=== PATIENT | female | born 1970 | race American Indian/Alaskan Native ===

== ENCOUNTER 2017-09-04 17:42 | Emergency (ER) | payer SELFPAY ==
[2017-09-04 18:43] LABS: Basophils % (Auto) 0.9 % (0.0-1.8); Eosinophils % (Auto) 3.3 % (0.0-4.3); Hemoglobin 13.4 gm/dl (10.1-14.3); Mean Corpuscular HGB Conc 34 % (30-34); Mean Corpuscular Hemoglobin 32 pg (28-32); Mean Corpuscular Volume 92 fl (79-97); Platelet Count 186 K/mm3 (140-440); Red Blood Count 4.24 M/mm3 (3.65-5.03); Red Cell Distribution Width 14.2 % (13.2-15.2); White Blood Count 6.3 K/mm3 (4.5-11.0)
[2017-09-04 19:25] LABS: Anion Gap 17 mmol/L; BUN/Creatinine Ratio 14; Blood Urea Nitrogen 11 mg/dL (7-17); Calcium 8.7 mg/dL (8.4-10.2); Carbon Dioxide 23 mmol/L (22-30); Chloride 102.8 mmol/L (98-107); Glucose 86 mg/dL (65-100); Potassium 4.2 mmol/L (3.6-5.0); Sodium 139 mmol/L (137-145)
--- NOTE | 2017-09-04 20:20 | Emergency Department Report ---
ED Chest Pain HPI - General Chief Complaint: Chest Pain Stated Complaint: CHEST PAIN, HIGH BLOOD PRESSURE Time Seen by Provider: 09/04/17 19:48 Source: patient Mode of arrival: Ambulatory Limitations: No Limitations - History of Present Illness Initial Comments: This is a 47-year-old Suzanne female presents to the emergency department from home, dropped off by her fianc, with complaint of some midsternal chest pain that has been going on since earlier today while at work. She had some shortness of breath when she first arrived but says that has improved. It is nonradiating chest pain. She also presents with elevated blood pressure despite compliance with her metoprolol. She said that the blood pressure was checked yesterday when she was donating blood and she had a systolic of about 210. It was still elevated today when she went to the pharmacy. She takes a baby aspirin each day but otherwise has not taken anything for her symptoms prior to presentation. Her floor surfacer is Dr. Thomson but she does not have a primary care doctor. She was here in May of last year and was diagnosed with an NSTEMI. Severity scale (0 -10): 4 - Related Data Previous Rx's Medication Instructions Recorded Last Taken Type Metoprolol Xl [Metoprolol 25 mg PO DAILY #30 tablet 12/01/16 Unknown Rx SUCCINATE ER TAB] Allergies Allergy/AdvReac Type Severity Reaction Status Date / Time No Known Allergies Allergy Unverified 11/30/16 13:16 Heart Score - HEART Score History: Slightly suspicious EKG: Non-specific Age: 45-65 Risk factors: 1-2 risk factors Troponin: < normal limit HEART Score: 3 - Critical Actions Critical Actions: 0-3 pts:0.9-1.7%risk of adverse cardiac event.Candidate for discharge ED Review of Systems ROS: Stated complaint: CHEST PAIN, HIGH BLOOD PRESSURE Other details as noted in HPI Comment: All other systems reviewed and negative Constitutional: denies: chills, fever Eyes: denies: eye pain, eye discharge, vision change ENT: denies: ear pain, throat pain Respiratory: shortness of breath. denies: cough, wheezing Cardiovascular: chest pain. denies: palpitations Gastrointestinal: denies: abdominal pain, nausea, diarrhea Genitourinary: denies: urgency, dysuria, discharge Musculoskeletal: denies: back pain, joint swelling, arthralgia Skin: denies: rash, lesions Neurological: denies: headache, weakness, paresthesias Psychiatric: denies: anxiety, depression ED Past Medical Hx - Past Medical History Previous Medical History?: Yes Hx Hypertension: Yes Hx Heart Attack/AMI: Yes Hx Asthma: No - Surgical History Past Surgical History?: Yes Additional Surgical History: , Heart ablation - Social History Smoking Status: Current Every Day Smoker Substance Use Type: Alcohol - Medications Home Medications: Home Medications Medication Instructions Recorded Confirmed Last Taken Type Metoprolol Xl [Metoprolol 25 mg PO DAILY #30 tablet 12/01/16 Unknown Rx SUCCINATE ER TAB] ED Physical Exam - General Limitations: No Limitations - Other Other exam information: GENERAL: The patient is well-developed well-nourished. HENT: Normocephalic. Atraumatic. Patient has moist mucous membranes. EYES: Extraocular motions are intact. Pupils equal reactive to light bilaterally. NECK: Supple. Trachea is midline. CHEST/LUNGS: Clear to auscultation. There is no respiratory distress noted. HEART/CARDIOVASCULAR: Regular. There is no tachycardia. There is no gallop rub or murmur. ABDOMEN: Abdomen is soft, nontender. Patient has normal bowel sounds. There is no abdominal distention. SKIN: Skin is warm and dry. NEURO: The patient is awake, alert, and oriented. The patient is cooperative. The patient has no focal neurologic deficits. The patient has normal speech. MUSCULOSKELETAL: There is no tenderness or deformity. There is no limitation range of motion. There is no evidence of acute injury. ED Course Vital Signs 09/04/17 09/04/17 09/04/17 17:55 19:56 20:00 Temperature 98.3 F Pulse Rate 56 L 54 L 46 L Respiratory 18 16 14 Rate Blood Pressure 196/97 173/88 Blood Pressure [Left] O2 Sat by Pulse 100 100 Oximetry 09/04/17 09/04/17 09/04/17 20:02 20:16 20:45 Temperature 98.2 F Pulse Rate 50 L 57 L 59 L Respiratory 1 L 19 22 Rate Blood Pressure 177/98 176/103 Blood Pressure 173/88 [Left] O2 Sat by Pulse 99 100 100 Oximetry 09/04/17 09/04/17 09/04/17 21:00 21:09 21:15 Temperature Pulse Rate 57 L 54 L 49 L Respiratory 19 16 16 Rate Blood Pressure 172/98 202/98 Blood Pressure 172/98 [Left] O2 Sat by Pulse 97 97 99 Oximetry 09/04/17 09/04/17 09/04/17 21:30 21:45 22:15 Temperature Pulse Rate 52 L 48 L Respiratory 25 H 18 Rate Blood Pressure 164/76 172/98 179/88 Blood Pressure [Left] O2 Sat by Pulse 98 99 100 Oximetry 09/04/17 09/04/17 09/04/17 22:30 22:45 23:01 Temperature Pulse Rate 48 L 49 L 50 L Respiratory 16 15 14 Rate Blood Pressure 173/98 183/103 176/88 Blood Pressure [Left] O2 Sat by Pulse 98 96 98 Oximetry 09/04/17 09/04/17 09/04/17 23:22 23:30 23:35 Temperature Pulse Rate 47 L 48 L Respiratory 15 16 Rate Blood Pressure 176/88 161/83 180/86 Blood Pressure [Left] O2 Sat by Pulse 100 97 Oximetry 09/04/17 09/04/17 09/05/17 23:45 23:49 00:00 Temperature Pulse Rate 62 71 62 Respiratory 16 21 14 Rate Blood Pressure 144/69 144/69 146/76 Blood Pressure [Left] O2 Sat by Pulse 99 99 97 Oximetry 09/05/17 00:15 Temperature Pulse Rate 63 Respiratory 13 Rate Blood Pressure 154/71 Blood Pressure [Left] O2 Sat by Pulse 96 Oximetry JONAH score - Jonah Score Age > 65: (0) No Aspirin use within the Past 7 Days: (0) No 3 or more CAD Risk Factors: (0) No 2 or more Angina events in past 24 hrs: (1) Yes Known CAD with more than 50% Stenosis: (0) No Elevated Cardiac Markers: (0) No ST Deviation Greater than 0.5mm: (0) No JONAH Score: 1 ED Medical Decision Making - Lab Data Result diagrams: 09/04/17 18:26 09/04/17 18:26 - EKG Data -: EKG Interpreted by Me EKG shows normal: sinus rhythm, axis, intervals (slightly prolonged PA interval) , QRS complexes (LDH), ST-T waves Rate: normal - EKG Data When compared to previous EKG there are: previous EKG unavailable Interpretation: other (sinus rhythm, normal axis, slightly prolonged PA interval , LVH) - Radiology Data Radiology results: report reviewed, image reviewed interpreted by me: Chest x-ray does not show any acute process. There are no pleural effusions, obvious pneumonia and there is no pneumothorax. EXAM: CT ANGIO CHEST HISTORY: SOB, CP, elevated dimer TECHNIQUE: CT chest CT angiogram with reconstructions PRIORS: None. FINDINGS: There is no evidence of filling defect within the central pulmonary vasculature to suggest the presence of acute pulmonary embolus. No evidence of mediastinal pathologic lymph node enlargement. Soft tissue density in the anterior mediastinum likely reflects residual tissue. Heart and great vessels are unremarkable. The aorta is normal in caliber. No focal pulmonary infiltrate identified. No pleural fluid collection seen. No acute pulmonary abnormality noted. Visualized portion of the upper abdomen demonstrates no acute change. IMPRESSION: Negative. No CT evidence of acute pulmonary embolus - Medical Decision Making 47-year-old female presents with complaint of some chest pain that began earlier today while at work as well as elevated blood pressure. EKG does not show any signs of ST elevation AL. Labs are unremarkable except for a slightly elevated and equivocal d-dimer. However the patient had negative troponins 3. Because of the d-dimer, a CT angiography of the chest was done that did not show any pulmonary, dissection or any other acute process. vital signs stable throughout her ed course including being afebrile. She was given a small amount of hydralazine and eventually a small amount of morphine. She was reevaluated multiple times for multiple hours and currently is asymptomatic. She had a negative stress test back in November and says that she had another stress test done in January that also was negative. She has good follow-up with Dr. Thomson. She is low on the hard score criteria and a JONAH score of 1 and her pain is considered angina and 0 not. For all these reasons she appears safe for discharge home at this time. She will follow up with cardiology and will return to the ER for any worsening of her symptoms or any acute distress. - Differential Diagnosis AL, PE, pneumonia, costochondritis Critical Care Time: No Critical care attestation.: If time is entered above; I have spent that time in minutes in the direct care of this critically ill patient, excluding procedure time. ED Disposition Clinical Impression: Chest pain Qualifiers: Chest pain type: unspecified Qualified Code(s): R07.9 - Chest pain, unspecified Hypertension Qualifiers: Hypertension type: essential hypertension Qualified Code(s): I10 - Essential ( primary) hypertension Disposition: DC- TO HOME OR SELFCARE Is pt being admited?: No Condition: Stable Instructions: Chest Pain (ED), Hypertension (ED) Additional Instructions: Please follow-up with your floor surfacer in the next few days, without fail. Return to the emergency Department with any worsening of your symptoms or any acute distress. Referrals: CICI THOMSON MD [Staff Physician] - [facility] Time of Disposition: 01:05
[2017-09-04] MEDS ORDERED: NACL ONE (21:23)
--- NOTE | 2017-09-04 23:18 | Cat Scan Report ---
FINAL REPORT EXAM: CT ANGIO CHEST HISTORY: SOB, CP, elevated dimer TECHNIQUE: CT chest CT angiogram with reconstructions PRIORS: None. FINDINGS: There is no evidence of filling defect within the central pulmonary vasculature to suggest the presence of acute pulmonary embolus. No evidence of mediastinal pathologic lymph node enlargement. Soft tissue density in the anterior mediastinum likely reflects residual tissue. Heart and great vessels are unremarkable. The aorta is normal in caliber. No focal pulmonary infiltrate identified. No pleural fluid collection seen. No acute pulmonary abnormality noted. Visualized portion of the upper abdomen demonstrates no acute change. IMPRESSION: Negative. No CT evidence of acute pulmonary embolus
[2017-09-04] MEDS ORDERED: APRESOLINE IV ONE (23:25)
[2017-09-04] MEDS ORDERED: MORPHINE IV ONE (23:25)
[2017-09-05 01:25] VITALS: BP 145/73
--- NOTE | 2017-09-05 07:52 | XRay Report ---
Single view chest: History: Chest pain. Findings: Normal cardiomediastinal silhouette. Trachea is midline. No consolidation, pneumothorax or pleural effusion. Impression: No acute cardiopulmonary findings.
== END 2017-09-05 01:24 | disposition home or self-care (01) ==
LOC: ED 17:42
DX: R07.89 Other chest pain (principal); I10 Essential (primary) hypertension; I25.2 Old myocardial infarction; F17.210 Nicotine dependence, cigarettes, uncomplicated
CPT/HCPCS: 36415; 71010; 71275; 80048; 84484; 85025; 85379; 93005; 93010; 96374; 96375; 99285; J0360; J2270; Q9967

== ENCOUNTER 2017-09-06 15:25 | Inpatient (IN) | payer OTHER ==
--- NOTE | 2017-09-06 16:30 | Cat Scan Report ---
CT scan of head without IV contrast: History: Neurodeficit Findings: Ventricles are normal in size and midline in location. No evidence of acute ischemia, hemorrhage or mass. No extra-axial fluid collections. Normal brainstem and cerebellum. Normal sinuses and master air cells. Impression: No acute intracranial abnormality.
[2017-09-06 16:37] LABS: INR 0.95 (0.87-1.13)
[2017-09-06 16:38] LABS: Partial Thromboplastin Time 33.2 Sec. (24.2-36.6)
[2017-09-06 16:41] LABS: Anion Gap 18 mmol/L; BUN/Creatinine Ratio 12; Blood Urea Nitrogen 12 mg/dL (7-17); Carbon Dioxide 23 mmol/L (22-30); Chloride 106.6 mmol/L (98-107); Glucose 81 mg/dL (65-100); Potassium 4.2 mmol/L (3.6-5.0); Sodium 143 mmol/L (137-145)
[2017-09-06 17:01] LABS: Basophils % (Auto) 0.6 % (0.0-1.8); Eosinophils % (Auto) 2.8 % (0.0-4.3); Hematocrit 40.7 % (30.3-42.9); Hemoglobin 13.7 gm/dl (10.1-14.3); Mean Corpuscular HGB Conc 34 % (30-34); Mean Corpuscular Hemoglobin 31 pg (28-32); Mean Corpuscular Volume 92 fl (79-97); Platelet Count 183 K/mm3 (140-440); Red Blood Count 4.41 M/mm3 (3.65-5.03); Red Cell Distribution Width 14.4 % (13.2-15.2); White Blood Count 6.2 K/mm3 (4.5-11.0)
[2017-09-06] MEDS ORDERED: TYLENOL PO ONE (17:29)
[2017-09-06] MEDS ORDERED: ASPIRIN PO ONE (17:30)
--- NOTE | 2017-09-06 17:43 | Emergency Department Report ---
ED Neuro Deficit HPI - General Chief Complaint: Weakness Stated Complaint: CHEST PAIN/HTN Time Seen by Provider: 09/06/17 16:06 Source: EMS Mode of arrival: Stretcher Limitations: No Limitations - History of Present Illness Initial Comments: Patient states that she was driving and speaking to her son. SHE FELT LIKE HER LEFT FACE WAS DROOPING. SHE ALSO THOUGHT HER speech was slurred. She arrived in the emergency department and the nurse immediately brought her to my attention. Upon my catheter she had no facial droop. Her speech was normal although a bit slow but certainly not dysarthric. Her NIH stroke score was 0. She was noted to be hypertensive. Patient states that she was placed on metoprolol just 2 days ago 25 mg for her hypertension. She has no prior history of CVA. She has no prior history of atrial fibrillation. -: Sudden Location: speech, left face Presenting Symptoms: Present: Weak/Paralyzed One Side, Unable to Speak Clearly. Absent: Sudden, Severe Headache, Blurred/Loss of Vision, Facial Droop/Numbness , Altered Mental Status History of same: No Place: other (while driving) Severity: mild Quality: weak Improves With: none Worsens With: none On Anticoagulants: No Context: sudden onset Associated Symptoms: denies other symptoms Treatments Prior to Arrival: none - Related Data Home Medications: Previous Rx's Medication Instructions Recorded Last Taken Type Metoprolol Xl [Metoprolol 25 mg PO DAILY #30 tablet 12/01/16 Unknown Rx SUCCINATE ER TAB] Allergies/Adverse Reactions: Allergies Allergy/AdvReac Type Severity Reaction Status Date / Time No Known Allergies Allergy Unverified 11/30/16 13:16 ED Review of Systems ROS: Stated complaint: CHEST PAIN/HTN Other details as noted in HPI Constitutional: denies: chills, fever Eyes: denies: eye pain, eye discharge, vision change ENT: denies: ear pain, throat pain Respiratory: denies: cough, shortness of breath, wheezing Cardiovascular: denies: chest pain, palpitations Endocrine: no symptoms reported Gastrointestinal: denies: abdominal pain, nausea, diarrhea Genitourinary: denies: urgency, dysuria, discharge Musculoskeletal: denies: back pain, joint swelling, arthralgia Skin: denies: rash, lesions Neurological: weakness (facial), other (difficulty with speech). denies: headache, paresthesias Psychiatric: denies: anxiety, depression Hematological/Lymphatic: denies: easy bleeding, easy bruising ED Past Medical Hx - Past Medical History Hx Hypertension: Yes Hx Heart Attack/AMI: Yes (?) Hx Asthma: No - Surgical History Additional Surgical History: , Heart ablation - Social History Smoking Status: Current Every Day Smoker Substance Use Type: Alcohol - Medications Home Medications: Home Medications Medication Instructions Recorded Confirmed Last Taken Type Metoprolol Xl [Metoprolol 25 mg PO DAILY #30 tablet 12/01/16 Unknown Rx SUCCINATE ER TAB] ED Neuro Physical Exam - General Limitations: No Limitations General appearance: alert, in no apparent distress, anxious Suspected Stroke: No - Head Head exam: Present: atraumatic, normocephalic - Eye Eye exam: Present: normal appearance, PERRL, EOMI. Absent: scleral icterus - ENT ENT exam: Present: normal exam, mucous membranes moist - Neck Neck exam: Present: normal inspection, other (carotid without bruit). Absent: tenderness, meningismus - Respiratory Respiratory exam: Present: normal lung sounds bilaterally. Absent: respiratory distress - Cardiovascular Cardiovascular Exam: Present: regular rate, normal rhythm. Absent: systolic murmur, diastolic murmur, rubs, gallop - GI/Abdominal GI/Abdominal exam: Present: soft, normal bowel sounds. Absent: distended, tenderness, guarding, rebound, rigid - Extremities Exam Extremities exam: Present: normal inspection, normal capillary refill. Absent: pedal edema, joint swelling, calf tenderness - Back Exam Back exam: Present: normal inspection - Neurological Exam Neurological exam: Present: alert, oriented X3, CN II-XII intact. Absent: motor sensory deficit - NIHSS Assessment Interval: Baseline 1a. Level of Consciousness: alert 1b. LOC Questions: answers correctly 1c. LOC Commands: performs tasks correctly 2. Best Gaze: normal 3. Visual: no visual loss 4. Facial Palsy: normal symmetrical movement 5b. Motor Arm Right: no drift 5a. Motor Arm Left: no drift 6a. Motor Leg Left: no drift 6b. Motor Leg Right: no drift 7. Limb Ataxia: absent 8. Sensory: normal 9. Best Language: no aphasia 10. Dysarthria: normal 11. Extinction/Inattention: no abnormality Total Score: 0 Stroke Severity: No Stroke Symptoms - Psychiatric Psychiatric exam: Present: normal affect, normal mood - Skin Skin exam: Present: warm, dry, intact, normal color. Absent: rash ED Course Vital Signs 09/06/17 09/06/17 09/06/17 15:45 15:47 16:03 Temperature 98.6 F Pulse Rate 62 68 Respiratory 12 18 Rate Blood Pressure 198/86 Blood Pressure 206/85 [Left] O2 Sat by Pulse 98 99 Oximetry 09/06/17 09/06/17 09/06/17 16:04 16:37 16:46 Temperature Pulse Rate 60 Respiratory 22 10 L Rate Blood Pressure 206/85 185/94 155/89 Blood Pressure [Left] O2 Sat by Pulse 100 99 Oximetry 09/06/17 09/06/17 09/06/17 17:00 17:16 17:30 Temperature Pulse Rate 54 L 54 L 56 L Respiratory 13 20 19 Rate Blood Pressure 203/94 203/94 188/87 Blood Pressure [Left] O2 Sat by Pulse 99 99 99 Oximetry - Reevaluation(s) Reevaluation #1: Nurse informed me that the patient complains of some vague chest pain. Her previous hospital EKG was without any evidence of ischemia. Repeat EKG done in the emergency department also showed no significant repolarization change. There are some nonspecific changes in the high lateral leads noted. Patient was described to Dr. Reyes who is admitted the patient to the hospitalist service for further care and evaluation. He stated that he will manage the patient's blood pressure. 09/06/17 18:05 Reevaluation #2: Patient had an NIHSS of 0. She was not a candidate for TPA. I'm uncertain as to whether or not this could be a TIA. She will be admitted as such and for evaluation of chest pain and uncontrolled hypertension. 09/06/17 18:07 - Lab Data Result diagrams: 09/06/17 16:09 09/06/17 16:09 Lab Results 09/06/17 09/06/17 09/06/17 Range/Units 16:09 16:09 16:09 WBC 6.2 (4.5-11.0) K/mm3 RBC 4.41 (3.65-5.03) M/mm3 Hgb 13.7 (10.1-14.3) gm/dl Hct 40.7 (30.3-42.9) % MCV 92 (79-97) fl MCH 31 (28-32) pg MCHC 34 (30-34) % RDW 14.4 (13.2-15.2) % Plt Count 183 (140-440) K/mm3 Lymph % (Auto) 36.5 H (13.4-35.0) % [place] % (Auto) 14.7 H (0.0-7.3) % Eos % (Auto) 2.8 (0.0-4.3) % Baso % (Auto) 0.6 (0.0-1.8) % Lymph # 2.2 (1.2-5.4) K/mm3 [place] # 0.9 H (0.0-0.8) K/mm3 Eos # 0.2 (0.0-0.4) K/mm3 Baso # 0.0 (0.0-0.1) K/mm3 Seg Neutrophils % 45.4 (40.0-70.0) % Seg Neutrophils # 2.8 (1.8-7.7) K/mm3 PT 13.2 (12.2-14.9) Sec. INR 0.95 (0.87-1.13) APTT 33.2 (24.2-36.6) Sec. Thrombin Time (15.1-19.6) Sec. Carbon Dioxide 23 (22-30) mmol/L BUN 12 (7-17) mg/dL Creatinine 1.0 (0.7-1.2) mg/dL Estimated GFR > 60 ml/min BUN/Creatinine Ratio 12 % Glucose 81 (65-100) mg/dL Calcium 9.0 (8.4-10.2) mg/dL Troponin T < 0.010 (0.00-0.029) ng/mL 09/06/17 Range/Units 16:09 WBC (4.5-11.0) K/mm3 RBC (3.65-5.03) M/mm3 Hgb (10.1-14.3) gm/dl Hct (30.3-42.9) % MCV (79-97) fl MCH (28-32) pg MCHC (30-34) % RDW (13.2-15.2) % Plt Count (140-440) K/mm3 Lymph % (Auto) (13.4-35.0) % [place] % (Auto) (0.0-7.3) % Eos % (Auto) (0.0-4.3) % Baso % (Auto) (0.0-1.8) % Lymph # (1.2-5.4) K/mm3 [place] # (0.0-0.8) K/mm3 Eos # (0.0-0.4) K/mm3 Baso # (0.0-0.1) K/mm3 Seg Neutrophils % (40.0-70.0) % Seg Neutrophils # (1.8-7.7) K/mm3 PT (12.2-14.9) Sec. INR (0.87-1.13) APTT (24.2-36.6) Sec. Thrombin Time 16.2 (15.1-19.6) Sec. Carbon Dioxide (22-30) mmol/L BUN (7-17) mg/dL Creatinine (0.7-1.2) mg/dL Estimated GFR ml/min BUN/Creatinine Ratio % Glucose (65-100) mg/dL Calcium (8.4-10.2) mg/dL Troponin T (0.00-0.029) ng/mL NA 143 K 4.2 CL 102.6 AG 18 - EKG Data -: EKG Interpreted by Me EKG shows normal: sinus rhythm, axis, intervals, QRS complexes Rate: normal Interpretation: other (high lateral nonspecific changes) - Radiology Data Radiology results: report reviewed interpreted by me: CT of the head was read as normal by the radiologist Dr. Donaldson. Critical care attestation.: If time is entered above; I have spent that time in minutes in the direct care of this critically ill patient, excluding procedure time. ED Disposition Clinical Impression: Uncontrolled hypertension TIA (transient ischemic attack) Qualifiers: Transient cerebral ischemia type: unspecified Qualified Code(s): G45.9 - Transient cerebral ischemic attack, unspecified Chest pain Qualifiers: Chest pain type: unspecified Qualified Code(s): R07.9 - Chest pain, unspecified Disposition: 09 OP ADMIT IP TO THIS HOSP Is pt being admited?: Yes Does the pt Need Aspirin: Yes Condition: Stable Instructions: Hypertension (ED), Chest Pain (ED) Time of Disposition: 18:09
[2017-09-06] MEDS ORDERED: DULCOLAX PR PRN (18:11)
[2017-09-06] MEDS ORDERED: TYLENOL PO PRN (18:11)
[2017-09-06] MEDS ORDERED: SODIUM CHLORIDE FLUSH SYRINGE 10 ML IV PRN (18:11)
[2017-09-06] MEDS ORDERED: MILK OF MAGNESIA PO PRN (18:11)
[2017-09-06] MEDS ORDERED: AMBIEN PO PRN (18:11)
[2017-09-06] MEDS ORDERED: NITROSTAT SL PRN (18:11)
[2017-09-06] MEDS ORDERED: ZOFRAN IV PRN (18:11)
[2017-09-06] MEDS ORDERED: LOPRESSOR PO ONE (18:19)
[2017-09-06] MEDS ORDERED: APRESOLINE IV PRN (18:20)
--- NOTE | 2017-09-06 18:35 | History and Physical Report ---
History of Present Illness Date of examination: 09/06/17 Date of admission: 09/06/2017 Chief complaint: Chest pain History of present illness: 47-year-old female with a history of hypertension in atrial fibrillation presents this admission with an acute episode of difficulty with speech in left- sided arm numbness and weakness that lasted for less than 10 minutes. Patient was talking to her son on the phone in experienced episode of difficulty in speech and arm numbness. By the time patient examined by ambulates had resolved. States was approximately 10 minutes. At present patient did not have any symptoms no complaints and no vision changes. patient also experienced periods some chest pain in the er. patient describes pain is nonradiating. not associated with shortness of breath no dysuria exertion no orthopnea no pnd. patient gives history of a recent radioablation done by [facility]. patient was started on 25 mg of metoprolol and states has not yet controlled her blood pressure. patient was also in the emergency room several days ago and was also treated with beta rodrick. patient presents this admission with blood pressure systolic greater than 200. at present blood pressure 189/101. she is only taking metoprolol 25 mg. important to note pulse is controlled at 61. Past History Past Medical History: atrial fib, hypertension. denies: cancer, COPD, diabetes , dialysis, DVT, ESRD, GERD, heart failure, hepatitis, HIV/AIDS, hyperthyroidism , hyperlipidemia, hypothyroidism, liver disease, pulmonary embolism, seizures, stroke, sarcoidosis Past Surgical History: Other (radioablation). denies: appendectomy, abd. aortic aneurysm repair, arthroscopy, valve replacement, cholecystectomy, CABG, mastectomy, total hip replacement, tonsillectomy Social history: single, lives with family, smoking, full code Family history: hypertension Medications and Allergies Allergies Allergy/AdvReac Type Severity Reaction Status Date / Time No Known Allergies Allergy Unverified 11/30/16 13:16 Home Medications Medication Instructions Recorded Confirmed Last Taken Type Metoprolol Xl [Metoprolol 25 mg PO DAILY #30 tablet 12/01/16 Unknown Rx SUCCINATE ER TAB] Active Meds: Active Medications Acetaminophen (Tylenol) 650 mg PO Q4H PRN PRN Reason: Pain MILD(1-3)/Fever >100.5/MACHUCA Aspirin (Ecotrin) 325 mg PO QDAY ATUL Bisacodyl (Dulcolax) 10 mg [place] QDAY PRN PRN Reason: Constipation unrelieved by MOM Enoxaparin Sodium (Lovenox) 40 mg SUB-Q QDAY ATUL Famotidine (Pepcid) 20 mg IV BID [facility] Hydralazine HCl (Apresoline) 10 mg IV Q4HR PRN PRN Reason: Hypertension Labetalol HCl (Normodyne) 200 mg PO BID [facility] Stop: 09/10/17 23:59 Losartan Potassium (Cozaar) 50 mg PO QDAY [facility] Magnesium Hydroxide (Milk Of Magnesia) 30 ml PO Q4H PRN PRN Reason: Constipation Nitroglycerin (Nitrostat) 0.4 mg SL Q5M PRN PRN Reason: Chest Pain Ondansetron HCl (Zofran) 4 mg IV Q8H PRN PRN Reason: N/V unrelieved by Reglan Oxycodone/Acetaminophen (Percocet 5/325) 1 tab PO Q6H PRN PRN Reason: Pain, Moderate (4-6) Sodium Chloride (Sodium Chloride Flush Syringe 10 Ml) 10 ml IV PRN PRN PRN Reason: LINE FLUSH Zolpidem Tartrate (Ambien) 10 mg PO QHS PRN PRN Reason: Sleep Review of Systems Constitutional: no weight loss, no weight gain, no chills, no sweats, no anorexia, no fatigue, no weakness, no lethargy, no poor appetite, no chronic pain, no other Ears, nose, mouth and throat: no deferred, no ear discharge, no tinnitis, no decreased hearing, no nose pain, no nasal congestion, no sinus pressure, no bleeding gums, no mouth pain, no hoarseness, no sore throat, no swelling in throat, no post-nasal drip, no vertigo, no pain front of neck, no neck lump Breasts: deferred Cardiovascular: chest pain, high blood pressure, decreased exercise tolerance, no orthopnea, no palpitations, no rapid/irregular heart beat, no edema, no syncope, no lightheadedness, no shortness of breath, no dyspnea on exertion, no paroxysmal nocturnal dyspnea, no claudication, no phlebitis, no leg edema Respiratory: no cough, no cough with sputum, no excessive sputum, no hemoptysis , no shortness of breath, no dyspnea on exertion, no congestion, no wheezing, no pleurisy, no pain, no pain on inspiration, no snoring, no sleep apnea, no respiratory infections, no home oxygen, no other Gastrointestinal: no abdominal pain, no nausea, no vomiting, no diarrhea, no constipation, no change in bowel habits, no hematemesis, no BRBPR, no hematochezia, no early satiety, no heartburn, no excessive gas, no jaundice, no dyspepsia/bloating, no early satiety, no lactose intolerance Genitourinary Female: no pelvic pain, no dysuria, no stress incontinence, no incomplete emptying, no mixed incontinence Musculoskeletal: arm numbness/tingling, no neck stiffness, no neck pain, no shooting arm pain, no low back pain, no shooting leg pain, no leg numbness/ tingling, no hot joints, no morning stiffness, no muscle weakness, no muscle cramps, no myalgias, no atrophy, no limitation of motion, no fractures, no loss of height Integumentary: no redness, no sores, no jaundice, no lesions, no darkening of skin, no acne, no hirsutism Neurological: transient paralysis, numbness, change in speech, no head injury, no paralysis, no weakness, no parathesias, no tingling, no seizures, no syncope , no tremors, no ataxia, no lack of coordination, no vertigo, no headaches, no migraines, no tic, no convulsions, no aphasia, no change in mentation, no confusion, no memory loss, no changes in smell/taste, no balance difficulties, no motor disturbance, no double vision, no hearing difficulties, no burning pain Psychiatric: no anxiety, no sleep disturbances, no insomnia, no hypersomnia, no change in libido, no depression, no hopelessness, no anxiety attacks, no difficulties concentrating Endocrine: no cold intolerance, no polyphagia, no polydipsia, no polyuria, no nocturia, no flushing, no increase in ring/shoe/hat size, no deepening of the voice, no high blood sugars Hematologic/Lymphatic: no easy bleeding, no lymphadenopathy, no lymphedema Allergic/Immunologic: no allergic rhinitis, no wheezing, no persistent infections Exam - Constitutional Vitals: Temp Pulse Resp BP Pulse Ox 98.6 F 56 L 19 188/87 99 09/06/17 16:03 09/06/17 17:30 09/06/17 17:30 09/06/17 17:30 09/06/17 17:30 General appearance: Present: no acute distress, well-nourished - EENT Eyes: Present: PERRL ENT: hearing intact, clear oral mucosa - Neck Neck: Present: supple, normal ROM - Respiratory Respiratory effort: normal Respiratory: bilateral: CTA - Cardiovascular Heart Sounds: Present: S1 & S2. Absent: rub, click - Extremities Extremities: pulses symmetrical, No edema Peripheral Pulses: within normal limits - Abdominal General gastrointestinal: Present: soft, non-tender, non-distended, normal bowel sounds Female genitourinary: Present: normal - Integumentary Integumentary: Present: clear, warm, dry - Musculoskeletal Musculoskeletal: gait normal, strength equal bilaterally - Psychiatric Psychiatric: appropriate mood/affect, intact judgment & insight - Neurologic Neurologic: CNII-XII intact, moves all extremities Results - Labs CBC & Chem 7: 09/06/17 16:09 09/06/17 16:09 Labs: Laboratory Last Values WBC 6.2 K/mm3 (4.5-11.0) 09/06/17 16:09 RBC 4.41 M/mm3 (3.65-5.03) 09/06/17 16:09 Hgb 13.7 gm/dl (10.1-14.3) 09/06/17 16:09 Hct 40.7 % (30.3-42.9) 09/06/17 16:09 MCV 92 fl (79-97) 09/06/17 16:09 MCH 31 pg (28-32) 09/06/17 16:09 MCHC 34 % (30-34) 09/06/17 16:09 RDW 14.4 % (13.2-15.2) 09/06/17 16:09 Plt Count 183 K/mm3 (140-440) 09/06/17 16:09 Lymph % (Auto) 36.5 % (13.4-35.0) H 09/06/17 16:09 [place] % (Auto) 14.7 % (0.0-7.3) H 09/06/17 16:09 Eos % (Auto) 2.8 % (0.0-4.3) 09/06/17 16:09 Baso % (Auto) 0.6 % (0.0-1.8) 09/06/17 16:09 Lymph # 2.2 K/mm3 (1.2-5.4) 09/06/17 16:09 [place] # 0.9 K/mm3 (0.0-0.8) H 09/06/17 16:09 Eos # 0.2 K/mm3 (0.0-0.4) 09/06/17 16:09 Baso # 0.0 K/mm3 (0.0-0.1) 09/06/17 16:09 Seg Neutrophils % 45.4 % (40.0-70.0) 09/06/17 16:09 Seg Neutrophils # 2.8 K/mm3 (1.8-7.7) 09/06/17 16:09 PT 13.2 Sec. (12.2-14.9) 09/06/17 16:09 INR 0.95 (0.87-1.13) 09/06/17 16:09 APTT 33.2 Sec. (24.2-36.6) 09/06/17 16:09 Thrombin Time 16.2 Sec. (15.1-19.6) 09/06/17 16:09 Carbon Dioxide 23 mmol/L (22-30) 09/06/17 16:09 BUN 12 mg/dL (7-17) 09/06/17 16:09 Creatinine 1.0 mg/dL (0.7-1.2) 09/06/17 16:09 Estimated GFR > 60 ml/min 09/06/17 16:09 BUN/Creatinine Ratio 12 % 09/06/17 16:09 Glucose 81 mg/dL (65-100) 09/06/17 16:09 Calcium 9.0 mg/dL (8.4-10.2) 09/06/17 16:09 Troponin T < 0.010 ng/mL (0.00-0.029) 09/06/17 16:09 - Imaging and Cardiology EKG: image reviewed Chest x-ray: image reviewed CT Scan - head: image reviewed Assessment and Plan Assessment and plan: Patient admitted for chest pain transient focal deficit in malignant hypertension. Advance Directives: Yes VTE prophylaxis?: Chemical Plan of care discussed with patient/family: Yes - Patient Problems (1) Encephalopathy Current Visit: Yes Status: Acute Plan to address problem: At present was most likely hypertensive encephalopathy. Symptoms resolved in less than 10 minutes. Patient has no focal neurologic deficit this time. No headache no vision changes no shortness of breath no dyspnea on exertion. Symptoms improve with improvement of blood pressure however it's not optimally controlled. (2) Chest pain Current Visit: Yes Status: Acute Qualifiers: Chest pain type: unspecified Ischemic chest pain type: I Qualified Code(s ): R07.9 - Chest pain, unspecified Plan to address problem: Patient experienced some chest pain. Atypical chest pain. Will admit and rule out for UT. Risk factors include smoking recent atrial fibrillation and hypertension. We'll admit cardiac isoenzymes. Since patient just had radioablation less than a week ago would have cardiology reevaluate patient for any further recommendations. Patient currently admitted was not on any anticoagulant. We'll add aspirin today. Patient unable to tell me why she was not on an anticoagulant but states was a reason. Patient is actually regular at this particular time. We'll also be more aggressive with her blood pressure control. (3) TIA (transient ischemic attack) Current Visit: Yes Status: Acute Qualifiers: Transient cerebral ischemia type: unspecified Qualified Code(s): G45.9 - Transient cerebral ischemic attack, unspecified Plan to address problem: At this time very likely TIA high probability of hypertensive encephalopathy. Patient negative CT scan. Patient no focal deficits at this time. I think should be able to perform MRI and an outpatient if necessary. (4) Uncontrolled hypertension Current Visit: Yes Status: Acute Plan to address problem: I think this is patient's underlying problem malignant hypertension. No clear in stage organ damage at this particular time. Patient's pulse was 60 therefore would not advance beta rodrick at this particular time. Patient also is regular rhythm. Not sure if she had paroxysmal atrial fibrillation. Will treat with aspirin now also give losartan 50 mg daily and labetalol 200 mg twice a day. Patient most likely has already had echo and carotid Doppler. We' ll await cardiology recommendations because she just received radioablation. (5) Paroxysmal SVT (supraventricular tachycardia) Current Visit: No Status: Acute Plan to address problem: Treated was regular will start patient on aspirin for now. Any further anticoagulants per cardiology.
[2017-09-06] MEDS ORDERED: LOPRESSOR ONE (18:41)
[2017-09-06 19:28] LABS: Anion Gap 17 mmol/L; BUN/Creatinine Ratio 15; Blood Urea Nitrogen 15 mg/dL (7-17); Calcium 8.9 mg/dL (8.4-10.2); Carbon Dioxide 25 mmol/L (22-30); Chloride 104.5 mmol/L (98-107); Glucose 84 mg/dL (65-100); Potassium 4.3 mmol/L (3.6-5.0); Sodium 142 mmol/L (137-145)
[2017-09-06 19:30] LABS: Basophils % (Auto) 0.8 % (0.0-1.8); Eosinophils % (Auto) 2.7 % (0.0-4.3); Hematocrit 40.8 % (30.3-42.9); Hemoglobin 13.6 gm/dl (10.1-14.3); Mean Corpuscular HGB Conc 33 % (30-34); Mean Corpuscular Hemoglobin 31 pg (28-32); Mean Corpuscular Volume 93 fl (79-97); Platelet Count 179 K/mm3 (140-440); Red Blood Count 4.38 M/mm3 (3.65-5.03); Red Cell Distribution Width 14.3 % (13.2-15.2); White Blood Count 7.7 K/mm3 (4.5-11.0)
[2017-09-06 19:40] LABS: Creatine Kinase MB 1.8 ng/mL (0.0-4.0)
[2017-09-06] MEDS ORDERED: NORVASC PO ONE (22:45)
[2017-09-06] MEDS: HABITROL TD SCH (22:50)
[2017-09-06] MEDS: PEPCID IV SCH (22:50)
[2017-09-06] MEDS: NORMODYNE PO SCH (22:51)
[2017-09-06] MEDS: AMBIEN PO PRN (22:58)
[2017-09-07 05:03] LABS: Anion Gap 18 mmol/L; BUN/Creatinine Ratio 17; Blood Urea Nitrogen 17 mg/dL (7-17); Calcium 8.5 mg/dL (8.4-10.2); Carbon Dioxide 20 mmol/L (22-30); Chloride 104.4 mmol/L (98-107); Glucose 107 mg/dL (65-100); Potassium 3.8 mmol/L (3.6-5.0); Sodium 139 mmol/L (137-145)
--- NOTE | 2017-09-07 09:43 | Consultation ---
History of Present Illness Consult date: 09/07/17 Requesting physician: OSORIO LANDA Consult reason: chest pain History of present illness: There is a 47-year-old female with history of SVT had ablation last year history of hypertension was last seen in January patient states blood pressures normally well-controlled patient and states was in the ED on Saturday and had elevated blood pressure patient was discharged home from [facility] patient came back one she was driving had dizziness and slurred speech lasting less than 10 minutes patient's blood pressure on EMS was well above 200 patient had one episode of chest pain nonradiating nonexertional aspirin few seconds. Patient has no syncope no lightheadedness deficits no fever no chills Past History Past Medical History: hypertension, other (SVT status post ablation last year). denies: cancer, COPD, diabetes, dialysis, DVT, ESRD, GERD, heart failure, hepatitis, HIV/AIDS, hyperthyroidism, hyperlipidemia, hypothyroidism, liver disease, pulmonary embolism, seizures, stroke, sarcoidosis Past Surgical History: Other (radioablation). denies: appendectomy, abd. aortic aneurysm repair, arthroscopy, valve replacement, cholecystectomy, CABG, mastectomy, total hip replacement, tonsillectomy Social history: single, lives with family, smoking, full code Family history: hypertension Medications and Allergies Allergies Allergy/AdvReac Type Severity Reaction Status Date / Time No Known Allergies Allergy Unverified 11/30/16 13:16 Home Medications Medication Instructions Recorded Confirmed Last Taken Type Metoprolol Xl [Metoprolol 25 mg PO DAILY #30 tablet 12/01/16 09/06/17 Unknown Rx SUCCINATE ER TAB] Cayenne [Cayenne] 1 cap PO QDAY 09/06/17 09/06/17 Unknown History Multivitamin Tab [Multiple Vitamin 1 tab PO QDAY 09/06/17 09/06/17 Unknown History TAB (Theragran)] [place]-3/Dha/Epa/Fish Oil [Fish Oil 1,000 mg PO QDAY 09/06/17 09/06/17 Unknown History 1,000 mg Softgel] Active Meds: Active Medications Acetaminophen (Tylenol) 650 mg PO Q4H PRN PRN Reason: Pain MILD(1-3)/Fever >100.5/MACHUCA Aspirin (Ecotrin) 325 mg PO QDAY ATUL Bisacodyl (Dulcolax) 10 mg [place] QDAY PRN PRN Reason: Constipation unrelieved by MOM Enoxaparin Sodium (Lovenox) 40 mg SUB-Q QDAY [facility] Famotidine (Pepcid) 20 mg IV BID [facility] Last Admin: 09/06/17 22:50 Dose: 20 mg Hydralazine HCl (Apresoline) 10 mg IV Q4HR PRN PRN Reason: Hypertension Influenza Virus Vaccine Quadrival (Fluarix Quad [id number](36 Mos+)) 0.5 ml IM .ONCE ONE Stop: 09/07/17 12:01 Labetalol HCl (Normodyne) 200 mg PO BID [facility] Stop: 09/10/17 23:59 Last Admin: 09/06/17 22:51 Dose: Not Given Losartan Potassium (Cozaar) 50 mg PO QDAY [facility] Magnesium Hydroxide (Milk Of Magnesia) 30 ml PO Q4H PRN PRN Reason: Constipation Nicotine (Habitrol) 21 mg TD QDAY [facility] Last Admin: 09/06/17 22:50 Dose: 21 mg Nitroglycerin (Nitrostat) 0.4 mg SL Q5M PRN PRN Reason: Chest Pain Ondansetron HCl (Zofran) 4 mg IV Q8H PRN PRN Reason: N/V unrelieved by Reglan Oxycodone/Acetaminophen (Percocet 5/325) 1 tab PO Q6H PRN PRN Reason: Pain, Moderate (4-6) Sodium Chloride (Sodium Chloride Flush Syringe 10 Ml) 10 ml IV PRN PRN PRN Reason: LINE FLUSH Zolpidem Tartrate (Ambien) 10 mg PO QHS PRN PRN Reason: Sleep Last Admin: 09/06/17 22:58 Dose: 10 mg Review of Systems All systems: negative (HPI) Physical Examination Vital Signs Pulse Resp Pulse Ox 62 12 98 09/06/17 15:45 09/06/17 15:45 09/06/17 15:45 General appearance: no acute distress, well-nourished HEENT: Positive: PERRL, Mucus Membranes Moist Neck: Positive: neck supple, trachea midline Cardiac: Positive: Reg Rate and Rhythm, S1/S2. Negative: Audible Murmur Lungs: Positive: clear to auscultation, Normal Breath Sounds Neuro: Positive: Grossly Intact Abdomen: Positive: Soft, Active Bowel Sounds. Negative: Tender, Distended Female genitourinary: deferred Skin: Positive: Clear Incision: Cardiac Cath Site Musculoskeletal: No Pain, Normal Range of Motion Extremities: Present: normal. Absent: edema Results 09/06/17 18:58 09/07/17 03:45 Cardiac Enzymes 09/06/17 Range/Units 18:58 CK-MB (CK-2) 1.8 (0.0-4.0) ng/mL Lipids 09/06/17 Range/Units 18:58 Triglycerides 129 (2-149) mg/dL Cholesterol 139 (50-199) mg/dL HDL Cholesterol 40 (40-59) mg/dL Cholesterol/HDL Ratio 3.47 % CBC 09/06/17 Range/Units 18:58 WBC 7.7 (4.5-11.0) K/mm3 RBC 4.38 (3.65-5.03) M/mm3 Hgb 13.6 (10.1-14.3) gm/dl Hct 40.8 (30.3-42.9) % Plt Count 179 (140-440) K/mm3 Lymph # 3.1 (1.2-5.4) K/mm3 [place] # 0.9 H (0.0-0.8) K/mm3 Eos # 0.2 (0.0-0.4) K/mm3 Baso # 0.1 (0.0-0.1) K/mm3 Comprehensive Metabolic Panel 09/06/17 09/07/17 Range/Units 18:58 03:45 Sodium 142 139 (137-145) mmol/L Potassium 4.3 (3.6-5.0) mmol/L Chloride 104.5 (98-107) mmol/L Carbon Dioxide 25 20 L (22-30) mmol/L BUN 15 17 (7-17) mg/dL Creatinine 1.0 1.0 (0.7-1.2) mg/dL Glucose 84 107 H (65-100) mg/dL Calcium 8.9 8.5 (8.4-10.2) mg/dL - Imaging and Cardiology Stress echo: other (11/2016 negative Lexiscan EKG normal myocardial perfusion ischemia noted) Echo: report reviewed (12/2016 normal LV function with no significant regurgitation) EKG interpretations - Telemetry EKG Rhythm: Sinus Rhythm Assessment and Plan Encephalopathy secondary to hypertension Atypical chest pain DC ruled out Hypertension accelerated SVT ablation last year Recommend continuing losartan and changing Toprol to labetalol or better blood pressure control artery blood pressure if stable may discharge
--- NOTE | 2017-09-07 09:57 | XRay Report ---
AP CHEST: HISTORY: Hypertension AP view of the chest demonstrates a normal mediastinal and cardiac contour with clear lungs and normal bony and soft tissue structures. IMPRESSION: Unremarkable AP chest. No change since 09/04/17.
[2017-09-07] MEDS ORDERED: HABITROL TD SCH (10:00)
[2017-09-07] MEDS ORDERED: COZAAR PO SCH (10:00)
[2017-09-07] MEDS: HABITROL TD SCH (10:08)
[2017-09-07] MEDS: LOVENOX SUB-Q SCH (10:09)
[2017-09-07] MEDS: PEPCID IV SCH ×2 (10:10→21:26)
[2017-09-07] MEDS: ECOTRIN PO SCH (10:12)
[2017-09-07] MEDS: NORMODYNE PO SCH ×2 (10:12→18:00)
[2017-09-07] MEDS ORDERED: Fluarix Quad 2017-2018(36 MOS+) IM ONE (12:00)
[2017-09-07] MEDS: PERCOCET 5/325 PO PRN (12:13)
--- NOTE | 2017-09-07 16:35 | Progress Note ---
Assessment and Plan /Encephalopathy likely hypertensive encephalopathy. Symptoms improve with improvement of blood pressure however it's not optimally controlled. /Chest pain Patient c/o some chest pain on admission. cardiology consulted and no further intervention recommended /TIA (transient ischemic attack) At this time very likely TIA high probability of hypertensive encephalopathy. Patient negative CT scan. Patient no focal deficits at this time. Patient wants to get MRI inpt, will order /Malignant hypertension Increased losartan to 100 mg daily and labetalol 200 mg twice a day. cont to monitor /h/o Paroxysmal SVT (supraventricular tachycardia) Started patient on aspirin for now. cont BB Subjective Date of service: 09/07/17 Interval history: Patient seen and examined. Medical records and medication list reviewed. No acute event overnight noted by the RN. Patient denies any difficulty breathing. Patient is tolerating diet. Discussed plan of care at bedside with patient. Objective - Exam Narrative Exam: GENERAL: well-developed and well-nourished AAF lying on bed appeared to be in no discomfort. HEENT: Normocephalic. Atraumatic. No conjunctival congestion or icterus. Patient has moist mucous membranes. NECK: Supple. Trachea midline. CHEST/LUNGS: Clear to auscultated bilaterally, breathing nonlabored. No wheezes crackles or rhonchi. HEART/CARDIOVASCULAR: Regular in rate and rhythm. S1 and S2 positive. ABDOMEN: Abdomen is soft, nontender. Patient has normal bowel sounds. SKIN: There is no rash. Warm and dry. NEURO: No focal motor deficit. Follows command. MUSCULOSKELETAL: No joint effusion or tenderness. EXTRIMITY: No edema, no cyanosis or clubbing. PSYCH: Cooperative. - Constitutional Vitals: Vital Signs - 12hr 09/07/17 09/07/17 09/07/17 07:35 08:01 09:16 Temperature 98.3 F Pulse Rate 51 L 135 H Pulse Rate [ Apical] Respiratory 17 Rate Blood Pressure 133/95 163/78 133/95 O2 Sat by Pulse 98 Oximetry 09/07/17 09/07/17 10:00 11:47 Temperature 98.3 F Pulse Rate 58 L 63 Pulse Rate [ 58 L Apical] Respiratory 18 Rate Blood Pressure 150/81 O2 Sat by Pulse 99 100 Oximetry - Labs CBC & Chem 7: 09/06/17 18:58 09/07/17 03:45 Labs: Abnormal lab results 09/06/17 09/07/17 Range/Units 18:58 03:45 Lymph % (Auto) 40.2 H (13.4-35.0) % [place] % (Auto) 11.8 H (0.0-7.3) % [place] # 0.9 H (0.0-0.8) K/mm3 Carbon Dioxide 20 L (22-30) mmol/L Glucose 107 H (65-100) mg/dL
[2017-09-07] MEDS: COZAAR PO SCH (17:59)
[2017-09-07] MEDS: AMBIEN PO PRN (21:38)
[2017-09-07] MEDS ORDERED: NORVASC PO ONE (22:45)
[2017-09-08 04:50] VITALS: BP 111/58
[2017-09-08] MEDS: PERCOCET 5/325 PO PRN ×2 (05:55→14:34)
--- NOTE | 2017-09-08 09:39 | Magnetic Resonance Report ---
MRI OF THE BRAIN WITHOUT CONTRAST: HISTORY: Dizziness, syncope PROCEDURE: Multiplanar, multisequence MR imaging of the brain without IV contrast was performed. FINDINGS: Compared to the noncontrast CT head performed 09/06/17. The brain parenchyma signal intensity and its quezada white interface are within normal limits on all sequences. No evidence for acute ischemia, hemorrhage or mass. No chronic infarct or extra-axial fluid collection. The midline structures are central. The basal cisterns are patent. Normal ventricular size. The orbital cavities and sella turcica demonstrate no abnormality. The visualized paranasal sinuses and mastoid air cells are well aerated. IMPRESSION: Unremarkable non-enhanced MRI of the brain.
[2017-09-08] MEDS: COZAAR PO SCH ×2 (09:40→14:37)
[2017-09-08] MEDS: NORMODYNE PO SCH (09:43)
[2017-09-08] MEDS: ECOTRIN PO SCH (09:44)
[2017-09-08] MEDS: LOVENOX SUB-Q SCH (09:45)
[2017-09-08] MEDS: HABITROL TD SCH (09:45)
[2017-09-08] MEDS: PEPCID IV SCH (09:45)
--- NOTE | 2017-09-08 12:53 | Discharge Summary ---
Providers - Providers Date of Admission: 09/06/17 18:12 Date of discharge: 09/08/17 Attending physician: OSORIO LANDA 09/07/17 09:34 Speech Therapy Evaluation and Treat [CONS] Routine Reason For Exam: swallow eval Primary care physician: [employer] Hospitalization Condition: Good Pertinent studies: MRI brain unremarkable Hospital course: Pt presented with hypertensive encephalopathy resolved with corect of BP Pt given labetalol and ARB. tolerated well Disposition: DC-01 TO HOME OR SELFCARE - Discharge Diagnoses (1) Encephalopathy Status: Resolved (2) Chest pain Status: Resolved Qualifiers: Chest pain type: unspecified Ischemic chest pain type: I Qualified Code(s ): R07.9 - Chest pain, unspecified (3) TIA (transient ischemic attack) Status: Ruled-out Qualifiers: Transient cerebral ischemia type: unspecified Qualified Code(s): G45.9 - Transient cerebral ischemic attack, unspecified Comment: ruled out (4) Uncontrolled hypertension Status: Acute Comment: improved with change in bp meds (5) Paroxysmal SVT (supraventricular tachycardia) Status: Resolved Core Measure Documentation - Palliative Care Palliative Care/ Comfort Measures: Not Applicable - Core Measures Any of the following diagnoses?: none Exam - Constitutional Vitals: Temp Pulse Resp BP Pulse Ox 98.0 F 50 L 20 111/58 100 09/08/17 04:39 09/08/17 09:43 09/08/17 06:55 09/08/17 04:39 09/08/17 04:39 General appearance: Present: no acute distress, well-nourished - EENT Eyes: Present: PERRL ENT: hearing intact, clear oral mucosa - Neck Neck: Present: supple, normal ROM - Respiratory Respiratory effort: normal Respiratory: bilateral: CTA - Cardiovascular Heart Sounds: Present: S1 & S2. Absent: rub, click - Extremities Extremities: pulses symmetrical, No edema Peripheral Pulses: within normal limits - Abdominal General gastrointestinal: Present: soft, non-tender, non-distended, normal bowel sounds Female genitourinary: Present: normal - Integumentary Integumentary: Present: clear, warm, dry - Musculoskeletal Musculoskeletal: gait normal, strength equal bilaterally - Psychiatric Psychiatric: appropriate mood/affect, intact judgment & insight - Neurologic Neurologic: CNII-XII intact, moves all extremities Plan Activity: no restrictions Weight Bearing Status: Full Weight Bearing Diet: low salt Follow up with: PRIMARY CARE, [Primary Care Provider] - 3-5 Days CICI ORTIZ MD [Staff Physician] - 10/01/17 (foloow up 3 weeks) Prescriptions: Aspirin EC [Aspirin Enteric Coated TAB] 325 mg PO QDAY #30 tablet AtorvaSTATin [Lipitor] 40 mg PO QHS #30 tablet Labetalol [Normodyne TAB] 100 mg PO BID #60 tablet Losartan [Cozaar] 100 mg PO QDAY #30 tablet Nicotine [Habitrol] 21 mg TD QDAY #14 patch oxyCODONE /ACETAMINOPHEN [Percocet 5/325 mg] 1 tab PO Q6H PRN #10 tablet PRN Reason: Pain, Moderate (4-6)
--- NOTE | 2017-09-08 12:55 | Discharge Summary ---
Providers - Providers Date of Admission: 09/06/17 18:12 Date of discharge: 09/08/17 Attending physician: OSORIO LANDA 09/07/17 09:34 Speech Therapy Evaluation and Treat [CONS] Routine Reason For Exam: swallow eval Primary care physician: BUFFERER Hospitalization Condition: Good Hospital course: Discharge Diagnosis and management: /Encephalopathy likely hypertensive encephalopathy. Symptoms improve with improvement of blood pressure however it's not optimally controlled. /Chest pain Patient c/o some chest pain on admission. cardiology consulted and no further intervention recommended /TIA (transient ischemic attack) At this time very likely TIA high probability of hypertensive encephalopathy. Patient negative CT scan. Patient no focal deficits at this time. Patient wants to get MRI inpt, will order /Malignant hypertension Increased losartan to 100 mg daily and labetalol 200 mg twice a day. cont to monitor /h/o Paroxysmal SVT (supraventricular tachycardia) Started patient on aspirin for now. cont BB Disposition: DC-01 TO HOME OR SELFCARE Time spent for discharge: 32 minutes Core Measure Documentation - Palliative Care Palliative Care/ Comfort Measures: Not Applicable - Core Measures Any of the following diagnoses?: none Exam - Physical Exam Narrative exam: GENERAL: well-developed and well-nourished AAF lying on bed appeared to be in no discomfort. HEENT: Normocephalic. Atraumatic. No conjunctival congestion or icterus. Patient has moist mucous membranes. NECK: Supple. Trachea midline. CHEST/LUNGS: Clear to auscultated bilaterally, breathing nonlabored. No wheezes crackles or rhonchi. HEART/CARDIOVASCULAR: Regular in rate and rhythm. S1 and S2 positive. ABDOMEN: Abdomen is soft, nontender. Patient has normal bowel sounds. SKIN: There is no rash. Warm and dry. NEURO: No focal motor deficit. Follows command. MUSCULOSKELETAL: No joint effusion or tenderness. EXTRIMITY: No edema, no cyanosis or clubbing. PSYCH: Cooperative. - Constitutional Vitals: Temp Pulse Resp BP Pulse Ox 98.0 F 50 L 20 111/58 100 09/08/17 04:39 09/08/17 09:43 09/08/17 06:55 09/08/17 04:39 09/08/17 04:39 Plan Activity: advance as tolerated Weight Bearing Status: Weight Bear as Tolerated Diet: low fat, low salt Follow up with: PRIMARY CAREMD [Primary Care Provider] - 3-5 Days Prescriptions: AtorvaSTATin [Lipitor] 40 mg PO QHS #30 tablet Aspirin EC [Aspirin Enteric Coated TAB] 325 mg PO QDAY #30 tablet Labetalol [Normodyne TAB] 100 mg PO BID #60 tablet Losartan [Cozaar] 100 mg PO QDAY #30 tablet Nicotine [Habitrol] 21 mg TD QDAY #14 patch oxyCODONE /ACETAMINOPHEN [Percocet 5/325 mg] 1 tab PO Q6H PRN #10 tablet PRN Reason: Pain, Moderate (4-6)
--- NOTE | 2017-09-08 12:57 | Progress Note ---
Assessment and Plan chest pain resolved htn accelerated rec: cont betablockers and norvasc for bp control and echo normal lv function and stress test negative last year and negative trop. Subjective Date of service: 09/08/17 Principal diagnosis: chest pain Interval history: pt has chest pain or sob Objective Vital Signs Temp Pulse Pulse Resp BP BP Pulse Ox 09/08/17 09:43 50 L 09/08/17 09:40 50 L 09/08/17 06:55 20 09/08/17 05:55 20 09/08/17 04:39 98.0 F 59 L 18 111/58 100 09/08/17 01:28 16 09/08/17 00:28 18 09/07/17 23:48 98.3 F 71 18 117/60 99 09/07/17 21:25 53 L 172/88 09/07/17 19:56 58 L 18 98 09/07/17 19:52 98.1 F 53 L 18 172/88 100 09/07/17 19:42 61 09/07/17 16:00 98.5 F 51 L 18 145/82 100 - Physical Examination General: Appears Well HEENT: Positive: PERRL, Mucus Membranes Moist Neck: Positive: neck supple, trachea midline Cardiac: Positive: Reg Rate and Rhythm Lungs: Positive: clear to auscultation Neuro: Positive: Grossly Intact Abdomen: Positive: Soft, Active Bowel Sounds. Negative: Tender, Distended Skin: Positive: Clear Incision: Cardiac Cath Site Musculoskeletal: No Pain, Normal Range of Motion Extremities: Present: normal. Absent: edema - Imaging and Cardiology EKG: image reviewed Stress echo: other (11/2016 negative Lexiscan EKG normal myocardial perfusion ischemia noted) Echo: report reviewed (12/2016 normal LV function with no significant regurgitation) - Telemetry EKG Rhythm: Sinus Rhythm
== END 2017-09-08 19:00 | disposition home or self-care (01) | DRG 78 ==
LOC: ED 15:25 → 4A 18:12
PROVIDERS: ADMIT Internal Medicine; ATTEND Internal Medicine
DX: I67.4 Hypertensive encephalopathy (principal); G45.9 Transient cerebral ischemic attack, unspecified; I47.1 Supraventricular tachycardia; I10 Essential (primary) hypertension; I48.91 Unspecified atrial fibrillation; F17.200 Nicotine dependence, unspecified, uncomplicated; I25.2 Old myocardial infarction; Z72.89 Other problems related to lifestyle; Z82.49 Family history of ischemic heart disease and other diseases of the circulatory system
CPT/HCPCS: 36415; 70450; 70551; 71010; 80048; 80061; 82550; 82553; 84484; 85025; 85610; 85670; 85730; 90686; 93005; 93010; A9270-GY; J0360; J1650; J2405

== ENCOUNTER 2022-01-23 00:11 | Emergency (ER) | payer OTHER ==
[2022-01-23] MEDS ORDERED: fentaNYL 100 MCG/2 ML INJ IV ONE (00:43)
--- NOTE | 2022-01-23 00:53 | Emergency Department Report ---
HPI - General Chief Complaint: Chest Pain Time Seen by Provider: 01/23/22 00:29 - HPI HPI: 51-year-old female with history of hypertension, TIA, paroxysmal SVT in the past, and CAD brought in by EMS complaining of chest pain shortness of breath for the past 2 hours. The patient was given aspirin and nitroglycerin in route and her chest pain was improved only very slightly but returned very soon after. The patient reports that the pain is constant, mid substernal, pressure-like, nonradiating. It is 10 out of 10. She reports it started at the same time as the shortness of breath. She also has diaphoresis. She denies any associated fever/chills, headache, vision change, neck pain, cough, abdominal pain, nausea/vomiting, abdominal pain, focal weakness, sensory changes, confusion, syncope, lower extremity swelling, or any other symptoms. There are no known aggravating or alleviating factors. She is not vaccinated against COVID-19. ED Past Medical Hx - Past Medical History Previous Medical History?: Yes Hx Hypertension: Yes Hx CVA: Yes (TIA) Hx Heart Attack/AMI: Yes (x1) Hx Congestive Heart Failure: No Hx Diabetes: No Hx Deep Vein Thrombosis: No Hx Asthma: No Hx COPD: No Hx HIV: No - Surgical History Past Surgical History?: Yes Hx Coronary Stent: No Hx Pacemaker: No Hx Internal Defibrillator: No Additional Surgical History: x3, Heart ablation - Social History Smoking Status: Current Every Day Smoker Substance Use Type: None - Medications Home Medications: Home Medications Medication Instructions Recorded Confirmed Last Taken Type Fluticasone [Flonase] 1 spray NS QDAY #1 bottle 11/17/18 Unknown Rx methylPREDNISolone [Medrol] 4 mg PO DAILY #1 tab.ds.pk 11/17/18 Unknown Rx ED Review of Systems ROS: Stated complaint: CHEST PAIN Other details as noted in HPI Comment: All other systems reviewed and negative Constitutional: diaphoresis. denies: chills, fever Eyes: denies: eye pain, vision change ENT: denies: throat pain, congestion Respiratory: shortness of breath, SOB with exertion, SOB at rest. denies: cough Cardiovascular: chest pain. denies: palpitations, edema, syncope Gastrointestinal: denies: abdominal pain, nausea, vomiting Genitourinary: denies: dysuria, frequency Musculoskeletal: denies: back pain, arthralgia Skin: denies: rash, lesions Neurological: denies: headache, weakness, numbness Hematological/Lymphatic: denies: easy bleeding Physical Exam - Physical Exam Vital Signs: Vital Signs 01/23/22 01/23/22 00:30 00:48 Temperature 98.7 F Pulse Rate 91 H Respiratory 19 21 Rate Blood Pressure 118/63 [Left] O2 Sat by Pulse 100 Oximetry ED Course Vital Signs 01/23/22 01/23/22 00:30 00:48 Temperature 98.7 F Pulse Rate 91 H Respiratory 19 21 Rate Blood Pressure 118/63 [Left] O2 Sat by Pulse 100 Oximetry ED Medical Decision Making - Lab Data Result diagrams: 01/23/22 00:48 01/23/22 00:48 Lab Results 01/23/22 01/23/22 01/23/22 Range/Units 00:48 00:48 00:48 WBC 10.2 (4.5-11.0) K/mm3 RBC 4.25 (3.65-5.03) M/mm3 Hgb 12.9 (10.1-14.3) gm/dl Hct 38.3 (30.3-42.9) % MCV 90 (79-97) fl MCH 30 (28-32) pg MCHC 34 (30-34) % RDW 14.8 (13.2-15.2) % Plt Count 193 (140-440) K/mm3 Lymph % (Auto) 14.5 (13.4-35.0) % [place]wey % (Auto) 10.5 H (0.0-7.3) % Eos % (Auto) 1.7 (0.0-4.3) % Baso % (Auto) 0.6 (0.0-1.8) % Lymph # (Auto) 1.5 (1.2-5.4) K/mm3 [place] # (Auto) 1.1 H (0.0-0.8) K/mm3 Eos # (Auto) 0.2 (0.0-0.4) K/mm3 Baso # (Auto) 0.1 (0.0-0.1) K/mm3 Seg Neutrophils % 72.7 H (40.0-70.0) % Seg Neutrophils # 7.4 (1.8-7.7) K/mm3 PT 12.3 (12.2-14.9) Sec. INR 0.82 L (0.87-1.13) APTT 30.6 (24.2-36.6) Sec. D-Dimer 364.04 H (0-234) ng/mlDDU Sodium 141 (137-145) mmol/L Potassium 4.1 (3.6-5.0) mmol/L Chloride 106.0 (98-107) mmol/L Carbon Dioxide 22 (22-30) mmol/L Anion Gap 17 mmol/L BUN 13 (7-17) mg/dL Creatinine 0.8 (0.6-1.2) mg/dL Estimated GFR > 60 ml/min BUN/Creatinine Ratio 16 % Glucose 125 H (65-100) mg/dL Calcium 9.0 (8.4-10.2) mg/dL Magnesium (1.7-2.3) mg/dL Total Bilirubin < 0.20 (0.1-1.2) mg/dL Direct Bilirubin < 0.2 (0-0.2) mg/dL Indirect Bilirubin 0.0 mg/dL AST 16 (5-40) units/L ALT 15 (7-56) units/L Alkaline Phosphatase 87 (35-129) units/L Troponin T (0.00-0.029) ng/mL NT-Pro-B Natriuret Pep (0-900) pg/mL Total Protein 6.7 (6.3-8.2) g/dL Albumin 4.4 (3.9-5) g/dL Albumin/Globulin Ratio 1.9 % Lipase 88 H (13-60) units/L TSH (0.270-4.200) mlU/mL Urine Color (Yellow) Urine Turbidity (Clear) Urine pH (5.0-7.0) Ur Specific [place] (1.003-1.030) Urine Protein (Negative) mg/dL Urine Glucose (UA) (Negative) mg/dL Urine Ketones (Negative) mg/dL Urine Blood (Negative) Urine Nitrite (Negative) Urine Bilirubin (Negative) Urine Urobilinogen (<2.0) mg/dL Ur Leukocyte Esterase (Negative) Urine WBC (Auto) (0.0-6.0) /HPF Urine RBC (Auto) (0.0-6.0) /HPF U Epithel Cells (Auto) (0-13.0) /HPF Urine Mucus /HPF Urine Yeast (Budding) /HPF Urine Opiates Screen Urine Methadone Screen Ur Barbiturates Screen Ur Phencyclidine Scrn Ur Amphetamines Screen U Benzodiazepines Scrn Urine Cocaine Screen U Marijuana (THC) Screen Drugs of Abuse Note 01/23/22 01/23/22 01/23/22 Range/Units 00:48 01:41 01:41 WBC (4.5-11.0) K/mm3 RBC (3.65-5.03) M/mm3 Hgb (10.1-14.3) gm/dl Hct (30.3-42.9) % MCV (79-97) fl MCH (28-32) pg MCHC (30-34) % RDW (13.2-15.2) % Plt Count (140-440) K/mm3 Lymph % (Auto) (13.4-35.0) % [place]wey % (Auto) (0.0-7.3) % Eos % (Auto) (0.0-4.3) % Baso % (Auto) (0.0-1.8) % Lymph # (Auto) (1.2-5.4) K/mm3 [place] # (Auto) (0.0-0.8) K/mm3 Eos # (Auto) (0.0-0.4) K/mm3 Baso # (Auto) (0.0-0.1) K/mm3 Seg Neutrophils % (40.0-70.0) % Seg Neutrophils # (1.8-7.7) K/mm3 PT (12.2-14.9) Sec. INR (0.87-1.13) APTT (24.2-36.6) Sec. D-Dimer (0-234) ng/mlDDU Sodium (137-145) mmol/L Potassium (3.6-5.0) mmol/L Chloride (98-107) mmol/L Carbon Dioxide (22-30) mmol/L Anion Gap mmol/L BUN (7-17) mg/dL Creatinine (0.6-1.2) mg/dL Estimated GFR ml/min BUN/Creatinine Ratio % Glucose (65-100) mg/dL Calcium (8.4-10.2) mg/dL Magnesium 2.10 (1.7-2.3) mg/dL Total Bilirubin (0.1-1.2) mg/dL Direct Bilirubin (0-0.2) mg/dL Indirect Bilirubin mg/dL AST (5-40) units/L ALT (7-56) units/L Alkaline Phosphatase (35-129) units/L Troponin T < 0.010 (0.00-0.029) ng/mL NT-Pro-B Natriuret Pep 47.05 (0-900) pg/mL Total Protein (6.3-8.2) g/dL Albumin (3.9-5) g/dL Albumin/Globulin Ratio % Lipase (13-60) units/L TSH (0.270-4.200) mlU/mL Urine Color Yellow (Yellow) Urine Turbidity Cloudy (Clear) Urine pH 8.0 H (5.0-7.0) Ur Specific [place] 1.018 (1.003-1.030) Urine Protein <15 mg/dl (Negative) mg/dL Urine Glucose (UA) Neg (Negative) mg/dL Urine Ketones Neg (Negative) mg/dL Urine Blood Neg (Negative) Urine Nitrite Neg (Negative) Urine Bilirubin Neg (Negative) Urine Urobilinogen < 2.0 (<2.0) mg/dL Ur Leukocyte Esterase Neg (Negative) Urine WBC (Auto) 1.0 (0.0-6.0) /HPF Urine RBC (Auto) 10.0 (0.0-6.0) /HPF U Epithel Cells (Auto) 2.0 (0-13.0) /HPF Urine Mucus Few /HPF Urine Yeast (Budding) 3+ /HPF Urine Opiates Screen Presumptive negative Urine Methadone Screen Presumptive negative Ur Barbiturates Screen Presumptive negative Ur Phencyclidine Scrn Presumptive negative Ur Amphetamines Screen Presumptive negative U Benzodiazepines Scrn Presumptive negative Urine Cocaine Screen Presumptive negative U Marijuana (THC) Screen Presumptive negative Drugs of Abuse Note Disclamer 01/23/22 01/23/22 Range/Units 03:44 Unknown WBC (4.5-11.0) K/mm3 RBC (3.65-5.03) M/mm3 Hgb (10.1-14.3) gm/dl Hct (30.3-42.9) % MCV (79-97) fl MCH (28-32) pg MCHC (30-34) % RDW (13.2-15.2) % Plt Count (140-440) K/mm3 Lymph % (Auto) (13.4-35.0) % [place] % (Auto) (0.0-7.3) % Eos % (Auto) (0.0-4.3) % Baso % (Auto) (0.0-1.8) % Lymph # (Auto) (1.2-5.4) K/mm3 [place] # (Auto) (0.0-0.8) K/mm3 Eos # (Auto) (0.0-0.4) K/mm3 Baso # (Auto) (0.0-0.1) K/mm3 Seg Neutrophils % (40.0-70.0) % Seg Neutrophils # (1.8-7.7) K/mm3 PT (12.2-14.9) Sec. INR (0.87-1.13) APTT (24.2-36.6) Sec. D-Dimer (0-234) ng/mlDDU Sodium (137-145) mmol/L Potassium (3.6-5.0) mmol/L Chloride (98-107) mmol/L Carbon Dioxide (22-30) mmol/L Anion Gap mmol/L BUN (7-17) mg/dL Creatinine (0.6-1.2) mg/dL Estimated GFR ml/min BUN/Creatinine Ratio % Glucose (65-100) mg/dL Calcium (8.4-10.2) mg/dL Magnesium (1.7-2.3) mg/dL Total Bilirubin (0.1-1.2) mg/dL Direct Bilirubin (0-0.2) mg/dL Indirect Bilirubin mg/dL AST (5-40) units/L ALT (7-56) units/L Alkaline Phosphatase (35-129) units/L Troponin T < 0.010 (0.00-0.029) ng/mL NT-Pro-B Natriuret Pep (0-900) pg/mL Total Protein (6.3-8.2) g/dL Albumin (3.9-5) g/dL Albumin/Globulin Ratio % Lipase (13-60) units/L TSH 1.960 (0.270-4.200) mlU/mL Urine Color (Yellow) Urine Turbidity (Clear) Urine pH (5.0-7.0) Ur Specific [place] (1.003-1.030) Urine Protein (Negative) mg/dL Urine Glucose (UA) (Negative) mg/dL Urine Ketones (Negative) mg/dL Urine Blood (Negative) Urine Nitrite (Negative) Urine Bilirubin (Negative) Urine Urobilinogen (<2.0) mg/dL Ur Leukocyte Esterase (Negative) Urine WBC (Auto) (0.0-6.0) /HPF Urine RBC (Auto) (0.0-6.0) /HPF U Epithel Cells (Auto) (0-13.0) /HPF Urine Mucus /HPF Urine Yeast (Budding) /HPF Urine Opiates Screen Urine Methadone Screen Ur Barbiturates Screen Ur Phencyclidine Scrn Ur Amphetamines Screen U Benzodiazepines Scrn Urine Cocaine Screen U Marijuana (THC) Screen Drugs of Abuse Note - EKG Data -: EKG Interpreted by Me - EKG Data 01/23/22 01:06 Sinus rhythm. Normal axis. First-degree AV block. Otherwise normal intervals. No ectopy. LVH associated changes. Approximately [address] elevation noted in leads II, III, and aVF without obvious reciprocal ST depression or inversions. However, there are nonspecific T wave inversions. - Radiology Data Radiology results: report reviewed - Medical Decision Making 51-year-old female with history of hypertension, TIA, and CAD with NSTEMI in the past brought in by EMS with 2 hours of sudden onset mid substernal chest pain and shortness of breath which has been constant. The patient was given aspirin and nitro in route without significant improvement in her pain which has been constant. The patient is diaphoretic, screaming in pain. She is afebrile and with normal vital signs with blood pressure of 118/63 and saturating in the high 90s to 100% on room air. Physical examination reveals a patient in moderate distress with severe diaphoresis and screaming in pain. Lung auscultation reveals coarse breath sounds bilaterally without discrete rales or rhonchi. She has trace edema bilaterally. She is not vaccinated against COVID-19. Her EKG shows minimal ST elevation in the inferior leads but no obvious reciprocal changes. I discussed the EKG with electromechanic Dr. Collado who is on-call for STEMI and expressed my concern given that the patient appears to be very sick and with symptoms consistent with possible AK and he says EKG is normal and does not meet criteria for STEMI We will send a full set of labs and obtain chest x-ray as well as CTA of the chest to assess for evidence of PE versus dissection versus other abnormality to explain the patient's presentation. We will obtain serial troponins. We will give fentanyl for pain and reassess. On repeat assessment at 1:15 AM, the patient reports that her chest pain is only slightly better and she still feels very short of breath. Given that her blood pressure is slightly soft in the 110s systolic we will initiate a nitro drip which can be titrated to maintain adequate blood pressure and to treat her pain. On repeat assessment again at 1:45 AM, the patient reports that her chest pain is much better on the nitroglycerin drip but she remains very short of breath. Chest x-ray reveals findings consistent with congestive heart failure with volume overload. Labs reveal no significant leukocytosis or anemia. Kidney function is intact and there are no significant electrolyte abnormalities. Troponin is negative. BNP is normal. This is slightly surprising given her chest x-ray findings of CHF with volume overload and we are waiting on CT of the chest. In the meantime given the possibility of pneumonia we will administer ceftriaxone and azith romycin. Although the patient could have Covid pneumonia she is not hypoxic and therefore Decadron is not indicated at this time. I talked further with the patient who reveals that she has been having intermittent and slightly persistent headaches all week and that she had a headache before the symptoms started today. For this reason we will obtain CT of the head in addition to CTA of her chest CT of the head shows no acute abnormalities. CTA of the chest reveals enlarging soft tissue mass in the anterior mediastinum which was present on prior study from 2018 although it is significantly increased in size which could reflect thymic hyperplasia although thymic tumor and lymphoma cannot be excluded. There are also findings of congestive heart failure with bibasilar edema as well as increased reticular opacities within the left lung base which may reflect superimposed pneumonia. Given confirmation of CHF findings we will give 40 mg of Lasix in addition to the antibiotics. We will consult cardiology regarding recommendations for disposition. With further history revealing that patient has been having headaches and given the dramatic nature of her presentation today with crushing chest pain or shortness of breath as well as severe diaphoresis I am concerned about the possibility of some kind of endocrine emergency which would not necessarily show up on CT of the chest. At this facility we do not have endocrine or CT surgery on-call and therefore I am concerned she may need transfer I spoke with Dr. Brito of cardiology regarding the case and he agrees that given the presentation he may require further work-up with consultation of services we do not have at this facility. At 3:40 AM I spoke with Dr. Shay of CT surgery at [facility] who states that the patient could be admitted to the hospital service there with CT surgery as a consultation. Soon thereafter I spoke with Dr. Maxwell from [facility]. She asked that we wean the patient from the nitro drip and try Nitropaste and call back with her status given that nitro drips at that facility need to go to the ICU. Repeat troponin is negative. The patient's heart score is 6. Given that the patient remains symptomatically improving with stable vitals, we will attempt to wean off the nitro drip and see how the patient feels. The patient remains improved with stable vital signs after discontinuation of the nitro glycerin drip. If pain returns we can place nitro paste if her blood pressure allows. All of the diagnostic results as well as the plan of care including transfer were discussed with the patient expressed understanding and agreement. At 4:45 AM I spoke with Dr. Maxwell from [facility] and she accepts the patient for transfer Critical Care Time: Yes Critical care time in (mins) excluding proc time.: 35 Critical care attestation.: If time is entered above; I have spent that time in minutes in the direct care of this critically ill patient, excluding procedure time. Critical care time was spent in the evaluation/assessment, work-up, and management of acute onset congestive heart failure with volume overload as well as pneumonia and discovery of anterior mediastinal mass requiring initiation of nitroglycerin drip as well as consultation with multiple specialists and the transfer center and extensive discussion with the patient and her family as well as continuous monitoring and very frequent assessment and reevaluation. ED Disposition Clinical Impression: New onset of congestive heart failure, Chest pain, Diaphoresis, Left lower lobe pneumonia, Mediastinal mass, Persistent headaches Disposition: 02 SHORT TERM HOSPITAL Is pt being admited?: No Condition: Stable Instructions: Bacterial Pneumonia (ED) Referrals: PRIMARY CARE, [Primary Care Provider] - 3-5 Days Heart Score - HEART Score History: Highly suspicious EKG: Non-specific Age: 45-65 Risk factors: > 3 risk factors or hx of atherosclerotic disease Troponin: < normal limit HEART Score: 6 - EKG Read Time Time EKG Completed: 00:27 EKG Read Time: 00:29
[2022-01-23 01:07] LABS: Basophils # (Auto) 0.1 K/mm3 (0.0-0.1); Basophils % (Auto) 0.6 % (0.0-1.8); Eosinophils # (Auto) 0.2 K/mm3 (0.0-0.4); Eosinophils % (Auto) 1.7 % (0.0-4.3); Hematocrit 38.3 % (30.3-42.9); Hemoglobin 12.9 gm/dl (10.1-14.3); Lymphocytes # (Auto) 1.5 K/mm3 (1.2-5.4); Lymphocytes % (Auto) 14.5 % (13.4-35.0); Mean Corpuscular HGB Conc 34 % (30-34); Mean Corpuscular Volume 90 fl (79-97); Monocytes # (Auto) 1.1 K/mm3 (0.0-0.8); Monocytes % (Auto) 10.5 % (0.0-7.3); Platelet Count 193 K/mm3 (140-440); Red Blood Count 4.25 M/mm3 (3.65-5.03); Red Cell Distribution Width 14.8 % (13.2-15.2)
--- NOTE | 2022-01-23 01:15 | XRay Report ---
XR chest 1V ap INDICATION / CLINICAL INFORMATION: CP. COMPARISON: 11/17/2018 FINDINGS: SUPPORT DEVICES: None. HEART /PULMONARY VASCULATURE: Cardiac enlargement with pulmonary vasculature congestion. LUNGS / PLEURA: Mild bibasilar pulmonary opacities. No sizable pleural effusion. No pneumothorax. IMPRESSION: Findings suggestive of CHF/volume overload with mild bibasilar opacities, likely reflecting edema. Signer Name: Trace Hughes MD Signed: 01/23/2022 1:11 AM Workstation Name: [id number]
[2022-01-23 01:26] LABS: INR 0.82 (0.87-1.13)
[2022-01-23 01:28] LABS: Partial Thromboplastin Time 30.6 Sec. (24.2-36.6)
[2022-01-23 01:40] LABS: Alanine Aminotransferase 15 units/L (7-56); Albumin 4.4 g/dL (3.9-5); BUN/Creatinine Ratio 16; Blood Urea Nitrogen 13 mg/dL (7-17); Hemolysis Index 10
[2022-01-23 01:43] LABS: Bilirubin,Direct < 0.2 mg/dL (0-0.2)
[2022-01-23] MEDS ORDERED: AZITHROMYCIN/NS 500 MG/250 ML 500 MG/250 ML BAG IV ONE (01:53)
[2022-01-23] MEDS ORDERED: cefTRIAXone/NS 2 GM/100 ML 2 GM/100 ML BAG IV ONE (01:53)
[2022-01-23] MEDS ORDERED: NITROGLYCERIN DRIP 50 MG/250 ML BOTTLE IV SCH (02:00)
[2022-01-23 02:02] LABS: Bilirubin,Urine NEG (Negative); Blood,Urine NEG (Negative); Color,Urine Yellow (Yellow); Mucus,Urine FEW /HPF; Protein,Urine <15 mg/dL mg/dL (Negative); Urobilinogen,Urine < 2.0 mg/dL (<2.0)
[2022-01-23 02:05] LABS: Amphetamine Screen,Urine PRESUMPTIVE NEGATIVE; Benzodiazepines Screen,Urine PRESUMPTIVE NEGATIVE; Cannabinoid Screen,Urine PRESUMPTIVE NEGATIVE; Cocaine Screen,Urine PRESUMPTIVE NEGATIVE; Methadone Screen,Urine PRESUMPTIVE NEGATIVE; Opiate Screen,Urine PRESUMPTIVE NEGATIVE
--- NOTE | 2022-01-23 02:46 | Cat Scan Report ---
CT angio chest INDICATION / CLINICAL INFORMATION: Pt complains of chest pain with S.O.B. x 2 hours. TECHNIQUE: Axial CT images were obtained through the chest after injection of 100 cc of Omnipaque 350 IV contrast. 3 plane MIP and/or 3D reconstructions were produced. All CT scans at this location are performed using CT dose reduction for ALARA by means of automated exposure control. COMPARISON: CTA from 11/17/2018 and 11/11/2018. FINDINGS: PULMONARY ARTERIES: No central or segmental pulmonary embolus. THORACIC AORTA: No significant abnormality. HEART: The heart is enlarged. No significant pericardial effusion. MEDIASTINUM: There is increasing soft tissue within the anterior mediastinum. This was present on felecia or study from 2018, though is increased in size, measuring 5.8 x 3.0 cm in the upper mediastinum (ser ies 3 image 146); previously measured 4.1 x 2.0 cm. The inferior portion of the soft tissue masslike structure is essentially new from prior study, measuring 4.4 x 3.1 cm (series 3 image 168). Otherwise , no mediastinal or hilar lymphadenopathy. No lymphadenopathy in the axilla. LUNGS/PLEURA: There is mild interlobular septal thickening with mild reticular opacities in the left lung base. No lobar consolidation. No pleural effusion or pneumothorax. OTHER FINDINGS: None. UPPER ABDOMEN: No acute findings. SKELETAL SYSTEM: No acute osseous findings. IMPRESSION: 1. No evidence of pulmonary embolism. 2. Enlarging soft tissue in the anterior mediastinum. This was present on prior study from 2018, thou gh is significantly increased in size. This could reflect thymic hyperplasia, though thymic tumor suc h as thymoma cannot be excluded. Lymphoma is also in the differential, though felt less likely given presence on prior exam from 2018. 3. Findings of CHF with mild bibasilar interstitial edema. Increased reticular opacities within the l eft lung base may reflect superimposed pneumonia. Signer Name: Trace Hughes MD Signed: 01/23/2022 2:41 AM Workstation Name: [id number]
--- NOTE | 2022-01-23 02:47 | Cat Scan Report ---
CT HEAD WITHOUT CONTRAST INDICATION / CLINICAL INFORMATION: Headache x 1 week. TECHNIQUE: All CT scans at this location are performed using CT dose reduction for ALARA by means of automated exposure control. COMPARISON: None available. FINDINGS: BRAIN PARENCHYMA: No acute intracranial hemorrhage. No evidence of recent infarct. No mass effect or midline shift. VENTRICULAR SYSTEM/EXTRA-AXIAL SPACES: Ventricles are normal for age. No extra-axial fluid collection . ORBITS: Normal as visualized. SKELETAL SYSTEM/SOFT TISSUES: Normal bones and soft tissues. PARANASAL SINUSES/MASTOID AIR CELLS: No significant abnormality. ADDITIONAL FINDINGS: None. IMPRESSION: 1. No acute intracranial abnormality. Signer Name: Trace Hughes MD Signed: 01/23/2022 2:43 AM Workstation Name: [id number]
[2022-01-23] MEDS ORDERED: FUROSEMIDE 40 MG/4 ML INJ IV ONE (03:16)
[2022-01-23] MEDS ORDERED: NITROGLYCERIN 2% OINT 1 GM TP SCH (06:00)
--- NOTE | 2022-01-23 10:25 | Electrocardiograph Report ---
[facility] Test Date: 2022-01-23 Test Time: 00:27:11 Pat Name: MOLINA LOPEZ Department: Room: Gender: F [employer]: LOVE : 1970 Requested By: CHRIS ZAFAR Order Number: [id number] Reading MD: Christiano Welch Measurements Intervals Robson Rate: 87 P: 70 MN: 256 QRS: 44 QRSD: 71 T: 103 QT: 358 QTc: 432 Interpretive Statements Sinus rhythm Prolonged MN interval Right atrial enlargement LVH with secondary repolarization abnormality Borderline ST elevation, inferior leads No previous ECG available for comparison Electronically Signed On 01-23-2022 10:24:52 EST by Christiano Welch
[2022-01-23 13:13] VITALS: BP 95/58
== END 2022-01-23 16:06 | disposition short-term general hospital (02) ==
LOC: ED 00:11
DX: J18.1 Lobar pneumonia, unspecified organism (principal); I11.0 Hypertensive heart disease with heart failure; I50.9 Heart failure, unspecified; R61 Generalized hyperhidrosis; J98.59 Other diseases of mediastinum, not elsewhere classified; R51.9 Headache, unspecified; F17.200 Nicotine dependence, unspecified, uncomplicated; Z20.822 Contact with and (suspected) exposure to COVID-19; Z86.73 Personal history of transient ischemic attack (TIA), and cerebral infarction without residual deficits; Z79.899 Other long term (current) drug therapy
CPT/HCPCS: 36415; 70450; 71045; 71275; 80048; 80076; 80307; 81001; 83690; 83735; 83880; 84443; 84484; 85025; 85379; 85610; 85730; 87040; 87086; 93005; 93010; 96365; 96366; 96368; 96375; 99291; J0456; J0696; J1940; J3010; J3490; Q9967; U0003